=== PATIENT | female | born 1995 | race Hispanic/Latino ===

== ENCOUNTER 2019-07-30 14:49 | Outpatient (CLI) | payer OTHER ==
--- NOTE | 2019-07-30 17:42 | ULT ---
OB ULTRASOUND: 07/30/19 INDICATIONS: Size and dates. FINDINGS: There is a viable intrauterine gestation. Gestational age by ultrasound is 20 weeks, 1 day. BPD: 20 week, 1 day HC: 20 week, 2 day AC: 19 week, 6 day FL: 20 week, 1 day EFW: 325 grams, 20 week, 2 day. Placenta: Posterior. Presentation: Vertex. Amniotic fluid: Within normal range. MARIA E recorded at 9.25 cm. Cervical length: 4.2 cm. anatomy evaluated including intracranial contents, four chamber heart, stomach, kidneys, cord i nsertion, bladder, spine, lips, nose, extremities and three vessel cord. No abnormality identified. IMPRESSION: At 20 week, 1 day gestation by ultrasound measurement. POS: [facility]
== END 2019-07-30 14:50 | disposition home or self-care (01) ==
LOC: BICULT 14:49
PROVIDERS: ATTEND Family Medicine
DX: O09.92 Supervision of high risk pregnancy, unspecified, second trimester (principal); Z3A.20 20 weeks gestation of pregnancy
CPT/HCPCS: 76805

== ENCOUNTER 2019-12-08 18:20 | Inpatient (IN) | payer MEDICAID, SELFPAY ==
[2019-12-08] MEDS ORDERED: hydrALAZINE 20 MG/ML VIAL SLOW IVP PRN ×2 (19:14→23:30)
[2019-12-08] MEDS ORDERED: HYDROcodone/Acetaminophen 5/325 mg Tablet PO PRN (19:14)
[2019-12-08] MEDS ORDERED: Ondansetron PF 4 MG/2 ML Vial IVP PRN ×2 (19:14→23:30)
[2019-12-08] MEDS ORDERED: Ibuprofen 800 MG TAB PO PRN (19:14)
[2019-12-08] MEDS ORDERED: Butorphanol Tartrate 1 MG/ML VIAL SLOW IVP PRN (19:14)
[2019-12-08] MEDS ORDERED: Lidocaine 1% (PF) 30 ML VIAL SC PRN (19:14)
[2019-12-08] MEDS ORDERED: Lactated Ringer's 1,000 ML IV SCH ×2 (19:15)
[2019-12-08 19:42] LABS: Hemoglobin 12.7 g/dL (12.0-16.0); Mean Corpuscular Hemoglobin 32.7 pg (27.0-31.0); Mean Corpuscular Volume 96.2 fL (78.0-98.0); Mean Platelet Volume 9.6 fL (7.4-10.4); Platelet Count 195 thou/uL (130-400); Red Blood Cell (RBC) Count 3.87 mill/uL (4.20-5.40); White Blood Cell (WBC) Count 11.6 thou/uL (4.8-10.8)
[2019-12-08] MEDS ORDERED: Lidocaine 1% (PF) 30 ML VIAL ONE (19:45)
[2019-12-08] MEDS: NS / Oxytocin 40 units/1000ml 1,000 ML IV PRN ×2 (20:00→21:26)
[2019-12-08 20:22] LABS: Syphilis Antibody Nonreactive (Nonreactive); Syphilis Antibody Index 0.02 S/CO (<1.00 Non-Reactive)
[2019-12-08 20:23] LABS: HBSAg Index 0.17 S/CO (0-0.99); Hep B Surf Ag Non-Reactive S/CO (NonReactive)
[2019-12-08 20:57] VITALS: BMI 24.4
[2019-12-08] MEDS ORDERED: Benzocaine-Menthol 82.5 ML CAN TOP PRN (23:30)
[2019-12-08] MEDS ORDERED: Lanolin Ointment 7 GM TUBE TOP PRN (23:30)
[2019-12-08] MEDS ORDERED: NS / Oxytocin 40 units/1000ml 1,000 ML IV SCH (23:30)
[2019-12-08] MEDS ORDERED: Bisacodyl 10 MG SUPP PR PRN (23:30)
[2019-12-09] MEDS: Ibuprofen 800 MG TAB PO SCH ×4 (02:08→21:16)
[2019-12-09] MEDS ORDERED: traMADol HCl 50 MG TAB PO PRN ×2 (02:18)
--- NOTE | 2019-12-09 03:05 | DN ---
DATE OF PROCEDURE: 12/08/2019 Patient is a 24-year-old G2, now P2 female, who delivered a female infant on 12/08/2019 at 1953 hours by a term spontaneous vaginal delivery. Female infant was 39 weeks and one day with a weight of 2786 g and Apgars of 8 and nine. Placenta delivered spontaneously followed by Pitocin infusion. A third-degree perineal laceration was repaired with 2-0 Vicryl with a series of [id number] followed by 2-0 chromic in a normal usual fashion of closure of a second-degree following the repair of the anal sphincter. Quantitative blood loss 275 mL. Delivering physician, Enrrique Barber MD. There were no other complications. COUNTS: Correct. CONDITION: Stable in the immediate . Job ID: [id number]
[2019-12-09 06:06] LABS: Hemoglobin 10.3 g/dL (12.0-16.0)
[2019-12-09] MEDS: Milk Of Magnesia 30 ML UDCUP PO SCH (08:35)
[2019-12-09] MEDS: Prenatal Vitamin 1 TAB PO SCH (08:35)
[2019-12-09] MEDS: Docusate Calcium (SURFAK) 240 MG CAP PO SCH ×2 (08:35→21:16)
[2019-12-09] MEDS ORDERED: Adacel (T-DAP) 0.5 ML SYRINGE IM ONE (09:00)
--- NOTE | 2019-12-10 05:00 | PDOC.PP ---
Post Progress Note Post Day #: 2 Subjective: Doing well, would like to go home today PO intake tolerated: yes Flatus: yes Ambulation: yes Vital Signs (12 hours) Temp Pulse Resp BP Pulse Ox 12/09/19 21:04 98.5 F 80 12 107/50 L 96 Weight Weight 125 lb Other vitals reviewed and wnl - Physical Examination General: NAD Respiratory: non-labored breathing Abdominal: lochia, no distention, appropriately TTP Extremities: negative homans (B) Skin: no rash Neurological: no gross focal deficits Psychiatric: A&Ox3, normal affect Result Diagrams: 12/09/19 05:37 Additional Labs: Post Labs Blood Type O POSITIVE 12/08/19 21:20 Hep Bs Antigen Non-Reactive S/CO (NonReactive) 12/08/19 19:34 (1) Vaginal delivery Code(s): O80 - ENCOUNTER FOR FULL-TERM UNCOMPLICATED DELIVERY Status: Acute - Assessment/Plan PPD2 ok for DC home. Follow up with Dr Nuno in 2-3 weeks. [place] for DC med
[2019-12-10] MEDS: Ibuprofen 800 MG TAB PO SCH (05:39)
[2019-12-10 08:34] VITALS: BP 100/54; TEMP 98
[2019-12-10] MEDS: Milk Of Magnesia 30 ML UDCUP PO SCH (08:48)
[2019-12-10] MEDS: Prenatal Vitamin 1 TAB PO SCH (08:48)
[2019-12-10] MEDS: Docusate Calcium (SURFAK) 240 MG CAP PO SCH (08:48)
== END 2019-12-10 14:41 | disposition home or self-care (01) | DRG 768 ==
LOC: L&D/OP 18:20 → L&D 19:35 → 3SW 23:28
PROVIDERS: ADMIT Family Medicine; ATTEND Family Medicine
PROC: 10E0XZZ Delivery of Products of Conception, External Approach (ICD-10-PCS; principal; 2019-12-08)
PROC: 0DQR0ZZ Repair Anal Sphincter, Open Approach (ICD-10-PCS; 2019-12-08)
DX: O70.20 Third degree perineal laceration during delivery, unspecified (principal); Z37.0 Single live birth; Z3A.39 39 weeks gestation of pregnancy
CPT/HCPCS: 36415; 85014; 85018; 85027; 86780; 86850; 86900; 86901; 87340; 99285; J2001